=== PATIENT | male | born 1965 | race Hispanic/Latino ===

== ENCOUNTER 2019-11-08 15:43 | Emergency (ER) | payer SELFPAY ==
[2019-11-08] MEDS ORDERED: LOSARTAN 50 MG TABLET ONE ×2 (16:24→16:38)
[2019-11-08] MEDS ORDERED: METOPROLOL TARTRATE 50 MG TAB ONE (16:24)
[2019-11-08] MEDS ORDERED: ASPIRIN 325 MG TABLET ONE (16:24)
[2019-11-08 16:45] LABS: BASOPHILS % (AUTO) 0.4 % (0.0-5.0); EOSINOPHILS % (AUTO) 0.8 % (0.0-8.0); HEMATOCRIT 45.6 % (42-54); LYMPHOCYTES % (AUTO) 27.5 % (21.0-51.0); MEAN CORPUSCULAR HEMOGLOBIN 31.7 pg (27.0-33.0); MEAN CORPUSCULAR HGB CONC 35.3 g/dL (32.0-36.0); MEAN CORPUSCULAR VOLUME 89.8 fL (79-99); MONOCYTES % (AUTO) 8.9 % (3.0-13.0); NEUTROPHILS % (AUTO) 62.1 % (40.0-77.0); PLATELET COUNT (AUTO) 263 K/uL (130-400); RED BLOOD CELL COUNT(AUTO) 5.08 MIL/uL (4.50-6.20); WHITE BLOOD COUNT (AUTO) 10.4 K/uL (4.8-10.8)
[2019-11-08 16:59] LABS: AMPHET/METH SCREEN,URINE NEGATIVE (NEGATIVE); BARBITURATE SCREEN, URINE NEGATIVE (NEGATIVE); BENZODIAZEPINES SCREEN,URINE NEGATIVE (NEGATIVE); CANNABINOID SCREEN,URINE NEGATIVE (NEGATIVE); COCAINE SCREEN,URINE NEGATIVE (NEGATIVE); OPIATE SCREEN,URINE NEGATIVE (NEGATIVE); PHENCYCLIDINE SCREEN,URINE NEGATIVE (NEGATIVE)
[2019-11-08 17:00] LABS: INR 0.97 (0.85-1.15); PARTIAL THROMBOPLASTIN TIME 27.3 SEC (26.3-35.5); PROTHROMBIN TIME 10.2 SEC (9.6-11.6)
[2019-11-08 17:01] LABS: CREATININE 0.8 mg/dL (0.5-1.5); POTASSIUM 3.7 mmol/L (3.5-5.1)
[2019-11-08 17:06] LABS: BILIRUBIN,TOTAL 0.5 mg/dL (0.2-1.0); TOTAL PROTEIN, SERUM 7.1 g/dL (6.0-8.3)
[2019-11-08] MEDS ORDERED: NITROGLYCERIN 0.4 MG SL TAB SL ONE (17:45)
[2019-11-08] MEDS ORDERED: DIPHENHYDRAMINE HCL 25 MG CAPSULE ONE (19:14)
== END 2019-11-08 20:08 ==
LOC: EDH 15:43
DX: I16.0 Hypertensive urgency (principal); J30.2 Other seasonal allergic rhinitis; R07.89 Other chest pain; Z91.14 Patient's other noncompliance with medication regimen
CPT/HCPCS: 36415; 71045; 80053; 80305; 82550; 84484 ×2; 85025; 85610; 85730; 93005; 99285; Q0163